=== PATIENT | female | born 1995 ===

== ENCOUNTER 2019-02-04 02:40 | Inpatient (IN) ==
[2019-02-04] MEDS ORDERED: PIPERACILLIN/TAZOBACTAM 3,375 MG in SODIUM CHLORIDE 0.9% 100 ML IV ONE (04:40)
[2019-02-04] MEDS ORDERED: SODIUM CHLORIDE 0.9% 1,000 ML IV STA (04:48)
[2019-02-04] MEDS: MORPHINE 4 MG/1 ML VIAL IV PRN ×3 (06:58→23:21)
[2019-02-04] MEDS: ONDANSETRON 4 MG/2 ML VIAL IV PRN ×2 (06:59→11:31)
[2019-02-04] MEDS: PIPERACILLIN/TAZOBACTAM 3,375 MG in SODIUM CHLORIDE 0.9% 100 ML IV SCH ×3 (07:16→20:31)
[2019-02-04] MEDS: DEXTROSE 5% NACL 0.45% 1,000 ML IV SCH ×2 (07:16→15:02)
[2019-02-04] MEDS: PANTOPRAZOLE 40 MG VIAL IV SCH (09:40)
[2019-02-04] MEDS: ACETAMINOPHEN 325 MG TABLET PO PRN ×2 (15:01→20:31)
[2019-02-05] MEDS: PIPERACILLIN/TAZOBACTAM 3,375 MG in SODIUM CHLORIDE 0.9% 100 ML IV SCH ×3 (05:31→21:00)
[2019-02-05] MEDS: PANTOPRAZOLE 40 MG VIAL IV SCH (08:31)
[2019-02-05] MEDS: DEXTROSE 5% NACL 0.45% 1,000 ML IV SCH ×2 (08:32→12:42)
[2019-02-05 09:08] LABS: Basophils % 0.3 % (0.0-0.8); Eosinophils # 0.2 10*3/uL (0.0-0.87); Eosinophils % 1.2 % (0.00-10.9); Hematocrit 36.6 VOL% (35.7-47.0); Hemoglobin 11.6 GM/DL (12.0-16.0); Immature Granulocytes % 1.4 %; Immature Granulocytes Absolute 0.21 #; Lymphocytes # 1.9 10*3/uL (1.4-4.0); Lymphocytes % 12.5 % (21.3-54.2); Mean Corpuscular HGB Conc 31.7 GM/DL (32-36); Mean Corpuscular Hemoglobin 29 PG (27-34); Mean Corpuscular Volume 92.2 FL (87-102); Mean Platelet Volume 10.2 FL (9.6-12.0); Monocytes # 1.3 10*3/uL (0.11-0.8); Monocytes % 8.3 % (1.7-12.7); Neutrophils # 11.5 10*3/uL (1.4-7.4); Neutrophils % 76.3 % (38.7-73.9); Platelet Count 283 T/CUMM (130-400); Red Blood Count 3.97 MC/CUMM (3.8-5.5); Red Cell Distribution Width 13.5 % (9.3-17.3); White Blood Count 15.1 T/CUMM (4-12)
[2019-02-05 09:19] LABS: Osmolality,Calculated 274.5 MOS/KG (273-304); Potassium 3.3 MMOL/L (3.5-5.1)
[2019-02-05] MEDS: MORPHINE 4 MG/1 ML VIAL IV PRN (10:30)
[2019-02-05] MEDS: ACETAMINOPHEN 325 MG TABLET PO PRN (16:01)
[2019-02-06] MEDS: DEXTROSE 5% NACL 0.45% 1,000 ML IV SCH ×3 (05:19→15:20)
[2019-02-06] MEDS: PIPERACILLIN/TAZOBACTAM 3,375 MG in SODIUM CHLORIDE 0.9% 100 ML IV SCH ×3 (05:22→20:45)
[2019-02-06] MEDS: ACETAMINOPHEN 325 MG TABLET PO PRN ×3 (05:25→23:56)
[2019-02-06] MEDS: ONDANSETRON 4 MG/2 ML VIAL IV PRN ×2 (05:25→20:49)
[2019-02-06] MEDS: PANTOPRAZOLE 40 MG VIAL IV SCH (08:00)
[2019-02-06] MEDS: POTASSIUM CHLORIDE 20 MEQ TABLET PO PRN ×3 (10:23→14:58)
[2019-02-07] MEDS: DEXTROSE 5% NACL 0.45% 1,000 ML IV SCH ×4 (02:30→17:55)
[2019-02-07] MEDS: ONDANSETRON 4 MG/2 ML VIAL IV PRN (05:01)
[2019-02-07] MEDS: PIPERACILLIN/TAZOBACTAM 3,375 MG in SODIUM CHLORIDE 0.9% 100 ML IV SCH ×3 (05:02→21:34)
[2019-02-07] MEDS: ACETAMINOPHEN 325 MG TABLET PO PRN ×2 (09:39→17:55)
[2019-02-07] MEDS: PANTOPRAZOLE 40 MG VIAL IV SCH (09:40)
[2019-02-07] MEDS ORDERED: VANCOMYCIN INJ 1,750 MG in SODIUM CHLORIDE 0.9% 500 ML IV ONE (10:00)
[2019-02-07] MEDS: SODIUM CHLORIDE 0.45% 1,000 ML IV SCH (16:33)
[2019-02-08 05:12] LABS: Basophils % 0.4 % (0.0-0.8); Eosinophils # 0.2 10*3/uL (0.0-0.87); Eosinophils % 2.3 % (0.00-10.9); Hematocrit 37.9 VOL% (35.7-47.0); Hemoglobin 11.7 GM/DL (12.0-16.0); Immature Granulocytes % 1.3 %; Lymphocytes # 3.2 10*3/uL (1.4-4.0); Lymphocytes % 40.6 % (21.3-54.2); Mean Corpuscular HGB Conc 30.9 GM/DL (32-36); Mean Corpuscular Hemoglobin 29 PG (27-34); Mean Corpuscular Volume 93.1 FL (87-102); Mean Platelet Volume 10.3 FL (9.6-12.0); Monocytes # 0.6 10*3/uL (0.11-0.8); Monocytes % 7.8 % (1.7-12.7); Neutrophils # 3.8 10*3/uL (1.4-7.4); Neutrophils % 47.6 % (38.7-73.9); Platelet Count 353 T/CUMM (130-400); Red Blood Count 4.07 MC/CUMM (3.8-5.5); Red Cell Distribution Width 13.6 % (9.3-17.3)
[2019-02-08 05:28] LABS: Calcium 8.1 MG/DL (8.5-10.1); Osmolality,Calculated 280.3 MOS/KG (273-304); Potassium 3.9 MMOL/L (3.5-5.1)
[2019-02-08 05:43] LABS: Eosinophils 5 % (0-10); Lymphocytes 32 % (20-55); Myelocytes 1 %; Segmented Neutrophils 55 % (50-85)
[2019-02-08 05:45] LABS: Platelet Estimate Normal; Reactive Lymphocytes 1+
[2019-02-08 05:46] LABS: Total Cells Counted 100
[2019-02-08] MEDS ORDERED: DIAZEPAM 5 MG TABLET PO ONE ×2 (06:00→13:50)
[2019-02-08] MEDS ORDERED: MIDAZOLAM 2 MG/2 ML VIAL IV ONE (06:00)
[2019-02-08] MEDS ORDERED: fentaNYL 100 MCG/2 ML VIAL IV ONE (06:00)
[2019-02-08] MEDS: PIPERACILLIN/TAZOBACTAM 3,375 MG in SODIUM CHLORIDE 0.9% 100 ML IV SCH ×2 (06:09→17:23)
[2019-02-08] MEDS ORDERED: fentaNYL 100 MCG/2 ML VIAL ONE (14:32)
[2019-02-08] MEDS ORDERED: MIDAZOLAM 2 MG/2 ML VIAL ONE (14:32)
[2019-02-08] MEDS: PANTOPRAZOLE 40 MG VIAL IV SCH (17:23)
[2019-02-08] MEDS: DEXTROSE 5% NACL 0.45% 1,000 ML IV SCH (22:55)
[2019-02-09] MEDS: PIPERACILLIN/TAZOBACTAM 3,375 MG in SODIUM CHLORIDE 0.9% 100 ML IV SCH ×3 (01:18→17:28)
[2019-02-09 06:18] LABS: Basophils % 0.4 % (0.0-0.8); Eosinophils # 0.2 10*3/uL (0.0-0.87); Eosinophils % 2.6 % (0.00-10.9); Hematocrit 36.5 VOL% (35.7-47.0); Hemoglobin 11.8 GM/DL (12.0-16.0); Immature Granulocytes % 2.4 %; Immature Granulocytes Absolute 0.22 #; Lymphocytes # 3.5 10*3/uL (1.4-4.0); Lymphocytes % 37.3 % (21.3-54.2); Mean Corpuscular HGB Conc 32.3 GM/DL (32-36); Mean Corpuscular Hemoglobin 30 PG (27-34); Mean Corpuscular Volume 91.3 FL (87-102); Mean Platelet Volume 10.2 FL (9.6-12.0); Monocytes # 0.7 10*3/uL (0.11-0.8); Monocytes % 7.3 % (1.7-12.7); Neutrophils # 4.7 10*3/uL (1.4-7.4); Platelet Count 390 T/CUMM (130-400); Red Cell Distribution Width 13.5 % (9.3-17.3); White Blood Count 9.3 T/CUMM (4-12)
[2019-02-09 06:49] LABS: Osmolality,Calculated 282.1 MOS/KG (273-304); Potassium 3.5 MMOL/L (3.5-5.1)
[2019-02-09] MEDS: PANTOPRAZOLE 40 MG VIAL IV SCH (09:19)
[2019-02-09] MEDS: DEXTROSE 5% NACL 0.45% 1,000 ML IV SCH (17:28)
[2019-02-09] MEDS: SODIUM CHLORIDE 0.45% 1,000 ML IV SCH (18:00)
[2019-02-10] MEDS: PIPERACILLIN/TAZOBACTAM 3,375 MG in SODIUM CHLORIDE 0.9% 100 ML IV SCH ×3 (00:36→17:26)
[2019-02-10] MEDS: DEXTROSE 5% NACL 0.45% 1,000 ML IV SCH ×2 (06:48→08:23)
[2019-02-10] MEDS: PANTOPRAZOLE 40 MG VIAL IV SCH (10:25)
[2019-02-10] MEDS: POTASSIUM CHLORIDE 20 MEQ TABLET PO PRN (21:24)
[2019-02-11] MEDS: DEXTROSE 5% NACL 0.45% 1,000 ML IV SCH ×2 (00:25→16:16)
[2019-02-11] MEDS: PIPERACILLIN/TAZOBACTAM 3,375 MG in SODIUM CHLORIDE 0.9% 100 ML IV SCH ×3 (00:27→16:56)
[2019-02-11] MEDS: PANTOPRAZOLE 40 MG VIAL IV SCH (09:21)
[2019-02-11] MEDS: POTASSIUM CHLORIDE 20 MEQ TABLET PO PRN (21:55)
[2019-02-12] MEDS: DEXTROSE 5% NACL 0.45% 1,000 ML IV SCH ×5 (06:45→17:13)
[2019-02-12] MEDS: SODIUM CHLORIDE 0.45% 1,000 ML IV SCH (07:37)
[2019-02-12] MEDS: PANTOPRAZOLE 40 MG VIAL IV SCH (09:32)
[2019-02-12] MEDS ORDERED: PIPERACILLIN/TAZOBACTAM 3,375 MG in SODIUM CHLORIDE 0.9% 100 ML IV SCH (10:30)
[2019-02-12 16:07] VITALS: BP 134/67
== END 2019-02-12 17:35 | disposition home or self-care (01) | DRG 392 ==
LOC: EDUNIT# → EDBD → N.ED 02:40 → N.EDINP 05:10 → N.5E 06:05
PROVIDERS: ADMIT Surgery; ATTEND Surgery